=== PATIENT | female | born 1995 | race Caucasian/White ===

== ENCOUNTER 2017-08-06 20:57 | Emergency (ER) | payer BC ==
[2017-08-06 20:59] VITALS: O2SAT 97
--- NOTE | 2017-08-06 21:17 | EMERGENCY ROOM VISIT NOTE ---
History Report prepared by Avelina: Bc العراقي Under the Supervision of: Dr. Palmer Ram M.D. First contact with patient: 21:11 Chief Complaint: ALCOHOL OVERDOSE Stated Complaint: ALCOHOL Nursing Triage Summary: pt brought to ed via ems. pt was found in the hallway on the 4th floor of her apartment building by neighbors slurring her words. pt not answering any questions at this time. History of Present Illness The patient is a 21 year old female who presents to the Emergency Room due to severe alcohol intoxication. HPI limited secondary to patient's highly intoxicated state. She was found intoxicated. There is no reported trauma. Unable to give any further history Source of History: patient History Limited By: intoxication Note: Intoxication. Review of Systems Review of systems limited secondary to alcohol intoxication. Past Medical & Surgical This patient comes in as described above she is brought in after being found intoxicated. There was no reported trauma. We checked a blood sugar in was 85. Her blood alcohol was 308. She was placed on a cardiac technologist and was observed for multiple hours while she was here she is gradually starting to wake up. She has remained stable. Family History Patient reports no known family medical history. Social History Smoking Status: Unknown if Ever Smoked Housing Status: lives with roommate Occupation Status: [employer] student Current/Historical Medications No Active Prescriptions or Reported Meds Physical Exam Vital Signs Date Time Temp Pulse Resp B/P (MAP) Pulse Ox O2 Delivery O2 Flow Rate FiO2 08/07/17 01:10 84 18 118/61 97 Room Air 08/07/17 00:55 113 08/06/17 23:45 92 18 110/59 96 Room Air 08/06/17 22:50 102 20 136/85 95 Room Air 08/06/17 21:51 35.9 08/06/17 21:03 77 08/06/17 20:59 97 Room Air 08/06/17 20:53 105 16 125/87 94 Room Air Physical Exam General: Intoxicated young female who is lying prone in bed. Opens eyes to painful stimuli and mumbles but goes back to sleep. HEENT: Normal cephalic atraumatic. Pupils are equal round and reactive to light. Extraocular movements are intact. Oropharynx is pink with moist mucous membranes. No swelling of the mouth lips or tongue. Neck: Supple with a midline trachea. No meningeal signs or stiffness, no JVD or bruits. No Stridor. Chest: Clear to auscultation bilaterally. No wheezes or rhonchi. No increased work of breathing. Heart: regular rate and rhythm. Abdomen: Soft nontender, nondistended without rebound guarding or rigidity. Extremities: No cyanosis clubbing or edema. No calf tenderness or assymetry Spine/Back. Non tender to palpation. No CVA tenderness Skin: Good turgor without rashes. Neurologic exam: Cranial nerves two through 12 are intact. Intoxicated, moves all four extremities Medical Decision & Procedures Laboratory Results Test 08/06/17 21:18 08/06/17 21:20 Bedside Glucose 85 mg/dl (70-90) Ethyl Alcohol mg/dL 308.0 mg/dl (0-3) Laboratory studies as stated above per my review. ED Course 2111: Past medical records reviewed. The patient was evaluated in room C12, and a complete history and physical examination were performed. 2328: I reevaluated the patient. Her vital signs are stable. She wakes up to painful stimuli 0109: I reevaluated the patient, she wakes up and falls back asleep in response to painful stimuli. 0200: I reevaluated the patient, she wakes up and falls back asleep in response to painful stimuli. 0208: The patient will be signed out for later discharge. Medical Decision Differential Diagnosis Include: Alcohol intoxication, hypoglycemia, drug ingestion, trauma. This patient comes in as described above. She is found intoxicated. She was placed on a cardiac monitored bed initially and see 12. Aspiration precautions were applied. She has no external signs of trauma. Blood sugar was checked was 85 therefore this is not related to hypoglycemia but alcohol was however significantly elevated 308. Initially she was responsive to painful stimuli but the longer she was observed more responsive she came she will open her eyes and say a few words and go back to sleep. She is still sobering up. At shift change, was signed out to Dr. Dill who will follow up with her and likely discharge her in the morning and when she carmen up. Medication Reconcilliation Current Medication List: was personally reviewed by me Blood Pressure Screening Patient's blood pressure: Normal blood pressure Impression Primary Impression: Alcohol use with intoxication Scribe Attestation The scribe's documentation has been prepared under my direction and personally reviewed by me in its entirety. I confirm that the note above accurately reflects all work, treatment, procedures, and medical decision making performed by me. Departure Information Dispostion Home / Self-Care Prescriptions No Active Prescriptions or Reported Meds Referrals No Doctor, Assigned (PCP) Forms HOME CARE DOCUMENTATION FORM, IMPORTANT VISIT INFORMATION Patient Instructions Alcohol Intoxication - [facility], [facility]: [employer] Students and Alcohol Related Visits , My [facility] Additional Instructions Rest. Do not drink anymore alcohol Drink plenty of nonalcoholic liquid Return if: Worsening of symptoms, any new problems or concerns
[2017-08-06 21:51] VITALS: TEMP 35.9
--- NOTE | 2017-08-07 04:36 | EMERGENCY ROOM VISIT NOTE ---
ED Visit Note First contact with patient: 02:38 This case was signed out to me at change of shift awaiting sobriety. The patient has been resting comfortably and is hemodynamic stable. Once she is more sober, she will be discharged with a friend. 0435: At this time, the patient is sober. I had a conversation with her about her visit to the emergency department. She was encouraged to avoid such excessive alcohol use in the future. A friend has arrived and is sober and will take her home.
[2017-08-07 04:43] VITALS: BP 118/61; PULSE 84; O2SAT 97
== END 2017-08-07 04:44 | disposition home or self-care (01) ==
LOC: C.EDC 21:00 → EDBD 21:00 → C.EDA 08-07 04:44
DX: F10.920 Alcohol use, unspecified with intoxication, uncomplicated (principal)